=== PATIENT | male | born 1955 | race Caucasian/White ===

== ENCOUNTER → 2016-09-20 | Outpatient (CLI) | payer BC ==
[2014-01-25 15:00] VITALS: BP 114/58
[~2016-09-20] MED LIST: AMPI500C2 PO; CIPR500T94 PO; PRIM50TA PO; PROP60CA PO; TAMS0.4C2 PO
--- NOTE | 2016-09-20 08:57 | RAD ---
Abdominal ultrasound - limited to the kidneys Indication: Right flank pain, recurrent urinary tract infections. Comparison: Ultrasound abdomen 01/22/2014. Procedure: Transabdominal ultrasound images are obtained of the kidneys and bladder. Findings: Right kidney measures 11.8 cm in length. Superior pole of the right kidney demonstrates 3.7 cm cyst. The interpolar region of the right kidney demonstrates an additional cyst with demonstrates a mild amount of internal echogenicity and is favored represent proteinaceous cyst. Second cyst measures 1.9 cm in maximum dimension; on previous study, this had more simple appearance. Right kidney is without evidence of obstruction. Left kidney measures 12.5 cm in length. Left kidney is without evidence of obstruction or stone. Inferior pole of left kidney demonstrates 2 cysts measuring 2.8 and 1.8 cm in maximum dimension. Left kidney is without evidence of obstruction. Parenchymal echogenicity appears appropriate. Urinary bladder demonstrate presence of Martinez catheter. No focal urinary bladder wall thickening is identified. Impression: 1. Bilateral renal cysts. 2. No evidence of renal obstruction..
== END | disposition home or self-care (01) ==
LOC: US 07:35
PROVIDERS: ATTEND Urology
DX: N28.1 Cyst of kidney, acquired (principal); Z87.440 Personal history of urinary (tract) infections
CPT/HCPCS: 76770

== ENCOUNTER 2016-10-30 16:30 | Emergency (ER) | payer BC ==
[2016-10-30 16:35] VITALS: BP 127/92
[2016-10-30] MEDS ORDERED: LIDOCAINE WITH 8.4% SOD BICARB 3 ML DISP.SYRIN. IJ ONE (17:00)
[2016-10-30] MEDS ORDERED: DIPHTH,PERTUSS(ACELL),TET TOX 0.5 ML DISP.SYRIN. VAX IM ONE (17:00)
[2016-10-30] MEDS ORDERED: fentaNYL PF 100 MCG/2 ML VIAL IV PRN (17:00)
[2016-10-30] MEDS ORDERED: MORP15TA PO (17:10)
--- NOTE | 2016-10-30 17:10 | PHYS DOC ---
Past History Past Medical History: Anxiety, Other Past Surgical History: Other Smoking: Non-smoker, Chew Alcohol Use: None Drug Use: None Adult General Chief Complaint Chief Complaint: FINGER INJURY HPI HPI 61-year-old gentleman presenting to the emergency department after sustaining an injury to the patient's right phalanx. He did this when he was working with a table saw. He sustained an avulsion/maceration/laceration injury. This occurred approximately 1 hour prior to arrival. His tetanus is reportedly up-to- date. He has pain that is moderate to severe sharp nonradiating and without alleviating factors. Review of systems is negative for wrist pain or elbow pain more proximally. He denies chest pain or abdominal pain. All other review of systems is negative unless otherwise noted in history of present illness. Pertinent physical exam findings showed a avulsion/macerated tissue at the distal end of his phalanx. He is neurovascularly intact and has 2 second cap refill around the area. Otherwise no other injuries identified more proximally. Nontender metacarpals. Nontender scaphoid. Nontender wrist. ED course: 61-year-old gentleman presenting after sustaining a avulsion injury to his right phalanx. The wound was irrigated. Tetanus is already up-to-date so we will not have to give that. A block of the phalanx was performed in the emergency room for further irrigation and assessment for possible suture. X- rays were obtained which showed distal phalanx fracture. The wound was washed out and Betadine was placed over the wound and surrounding tissue. The wound was very loosely reapproximated and placed in sterile nonadherent dressing for reassessment by primary care physician in 2 days. Strict return precautions were given. Antibiotics given upon discharge. The patient was then discharged home in stable condition to follow up with their primary care physician over the next 2-3 days. They were to return if their symptoms worsened or if they were concerned for any reason. [id number] discharge instructions and return precautions were given. Patient's questions were answered to their satisfaction. Patient is comfortable plan. Review of Systems Review of Systems SEE ABOVE. Current Medications Current Medications Current Medications Medications (Trade) Dose Ordered Sig/María Start Time Stop Time Status Last Admin Dose Admin Diphtheria/ Tetanus/Acell Pertussis (Boostrix) 0.5 ml ONCE ONCE 10/30/16 17:00 10/30/16 17:01 DC Fentanyl Citrate (Fentanyl 2ml Vial) 25 mcg PRN Q15MIN PRN 10/30/16 17:00 10/31/16 16:59 Lidocaine/Sodium Bicarbonate (Buffered Lidocaine 1%) 6 ml 1X ONCE 10/30/16 17:00 10/30/16 17:01 DC Allergies Allergies Allergies Coded Allergies Type Severity Reaction Last Updated Verified alprazolam Allergy Intermediate chest pain 01/21/14 Yes Physical Exam Physical Exam Constitutional: Well developed, well nourished, no acute distress, non-toxic appearance. [] HENT: Normocephalic, atraumatic, bilateral external ears normal, oropharynx moist, no oral exudates, nose normal. [] Eyes: PERRLA, EOMI, conjunctiva normal, no discharge. [] Neck: Normal range of motion, no tenderness, supple, no stridor. [] Cardiovascular:Heart rate regular rhythm, no murmur [] Lungs & Thorax: Bilateral breath sounds clear to auscultation [] Abdomen: Bowel sounds normal, soft, no tenderness, no masses, no pulsatile masses. [] Skin: Warm, dry, no erythema, no rash. [] Back: No tenderness, no CVA tenderness. [] Extremities: see above Neurologic: Alert and oriented X 3, normal motor function, normal sensory function, no focal deficits noted. [] Psychologic: Affect normal, judgement normal, mood normal. [] EKG EKG [] Radiology/Procedures Radiology/Procedures [] Course & Med Decision Making Course & Med Decision Making Pertinent Labs and Imaging studies reviewed. (See chart for details) [] Dragon Disclaimer Dragon Disclaimer This chart was dictated in whole or in part using Voice Recognition software in a busy, high-work load, and often noisy Emergency Department environment. It may contain unintended and wholly unrecognized errors or omissions. Departure Departure: Impression: Primary Impression: Injury of finger Disposition: HOME, SELF-CARE Condition: STABLE Referrals: SANCHEZ ANGELES MD (PCP) Patient Instructions: Finger Avulsion, Finger Fracture, [id number], Fingernail or Toenail Loss Additional Instructions: Thank you for allowing us to participate in your care today. Followup with your primary care physician in 3 days if your symptoms do not improve. If you do not have a primary care provider you can ask for a list of our primary care providers. Return to the emergency department you have any new or concerning findings. This should be evaluated by the primary care physician and any necessary consulting services for continued management within a few days after discharge. Return to emergency room if you have any new or concerning symptoms including but not limited to fever, chills, nausea, vomiting, intractable pain, any new rashes, chest pain, shortness of air, uncontrolled bleeding, difficulty breathing, and/or vision loss. You may have been prescribed medication that can change in your level of thinking and ability to operate machinery. These medications include hydrocodone and Ativan. Also, Benadryl has been known to do this as well. Be sure to check with your pharmacist and ask if the medications you've prescribed can affect your level of consciousness. I recommend not operating heavy machinery or driving while on medication such as these. Scripts Amoxicillin/Potassium Clav (AUGMENTIN 875-125 TABLET) 1 Each Tablet 1 TAB PO BID, #20 TAB Prov: ANISH EVANS MD 10/30/16 Morphine Sulfate (MORPHINE SULFATE) 15 Mg Tablet 1 TAB PO PRN Q8HRS Y for SEVERE PAIN, #8 TAB Be careful as this medication may make you sleepy or drowsy. Do not drive or operate heavy machinery on this medication. Be sure to ask the pharmacist about other side effects that can exist such as constipation. Prov: ANISH EVANS MD 10/30/16 Laceration Repair Lac Repair Indication right finger injury/avulsion injury Procedure: The wound was placed in appropriate position and a 1% buffered lidocaine finger block was placed with good analgesia. The area was washed with a liter of sterile saline along with the wound being cleansed with Betadine. The wound was loosely reapproximated with 3 nonabsorbable sutures and left to heal under more consistent with secondary intention. Total repair wound length 2 and half centimeters. semi complicated wound repair Complications: None. Problem Qualifiers Primary Impression: Injury of finger Encounter type: initial encounter Laterality: left Qualified Codes: S69.92XA - Unspecified injury of left wrist, hand and finger(s), initial encounter ANISH EVANS MD Oct 30, 2016 17:10
[2016-10-30] MEDS ORDERED: AMOX1TAB61 PO (17:50)
--- NOTE | 2016-10-31 07:57 | RAD ---
Indication: Right hand pain Time of exam 1732 hours. 3 views of the right hand were obtained. There is a soft tissue injury involving the tip of the index finger. The tuft is somewhat obscured and involvement and fracture of the most distal tip of the tuft cannot be entirely excluded. There are punctate opacities overlying or within the soft tissues of the index finger, perhaps foreign bodies. The remaining phalanges are intact. Metacarpals are intact. Impression: Soft tissue injury involving the tip of the index finger, as described.
== END 2016-10-30 18:10 | disposition home or self-care (01) ==
LOC: ER 16:30
DX: S62.630A Displaced fracture of distal phalanx of right index finger, initial encounter for closed fracture (principal); F17.220 Nicotine dependence, chewing tobacco, uncomplicated; Z88.8 Allergy status to other drugs, medicaments and biological substances; X58.XXXA Exposure to other specified factors, initial encounter; Y93.89 Activity, other specified; Y99.8 Other external cause status; Y92.89 Other specified places as the place of occurrence of the external cause
CPT/HCPCS: 12001; 73130; 96374; 99284; J3010

== ENCOUNTER → 2017-10-20 | Outpatient (CLI) | payer BC ==
[~2017-10-20] MED LIST changes: +AMOX1TAB61 PO; +MORP15TA PO
--- NOTE | 2017-10-20 15:29 | RAD ---
Renal ultrasound 10/20/2017 INDICATION: Urinary retention COMPARISON STUDY: Renal ultrasound September 20, 2016 Discussion: Ultrasound evaluation of the kidneys was performed. Static images are submitted to PACS. The bladder has a prevoid volume measurement of 1424 cc. Postvoid volume is 946 cc. This is considered a significant urinary retention. Right kidney measures 11.8 x 5.9 x 5.9 cm. 3 simple appearing right renal cysts are noted. The largest measures 3.7 cm in diameter and is in the superior pole. No hydronephrosis, or nephrolithiasis is identified on the right. Blood flow to right kidney is unremarkable in color Doppler imaging. Left kidney measures 12.4 x 5.3 x 5.7 cm. 2 simple appearing cysts are noted in the left kidney. Largest is in the inferior pole measuring up to 3.1 cm in diameter. Very mild hydronephrosis appears to be present on the left. No nephrolithiasis is identified. IMPRESSION: 1. Significant urinary retention with postvoid bladder volume 946 cc 2. Very mild left hydronephrosis. 3. Simple appearing bilateral renal cysts as described. Electronically signed by: Pedro Perez MD (10/20/2017 3:26 PM) [id number]
== END | disposition home or self-care (01) ==
LOC: US 13:33
PROVIDERS: ATTEND Urology
DX: N28.1 Cyst of kidney, acquired (principal); N13.39 Other hydronephrosis; R33.8 Other retention of urine
CPT/HCPCS: 76770

== ENCOUNTER → 2018-03-07 | Outpatient (CLI) | payer BC | END | disposition home or self-care (01) | LOC: LAB 07:03 | PROVIDERS: ATTEND Internal Medicine Cardiovascular Disease | DX: E78.00 Pure hypercholesterolemia, unspecified (principal) | CPT/HCPCS: 80061 ==

== ENCOUNTER → 2018-12-28 | Outpatient (CLI) | payer MEDICARE, BC ==
--- NOTE | 2018-12-28 12:49 | RAD ---
EXAM: Bilateral knees, 2 views. HISTORY: Pain. COMPARISON: None. FINDINGS: 2 views of both knees are obtained. There is mild right lateral compartment joint space narrowing and subchondral sclerosis. There is minimal bilateral patellofemoral compartment spurring. There is left medial compartment chondrocalcinosis. There is trace joint fluid without a significant effusion. IMPRESSION: Mild right lateral compartment predominant osteoarthritis of both knees and left knee chondrocalcinosis. Electronically signed by: Archana Guillen MD (12/28/2018 12:46 PM) [id number]
== END | disposition home or self-care (01) ==
LOC: DXRAD 12:09
PROVIDERS: ATTEND Family Medicine
DX: M17.0 Bilateral primary osteoarthritis of knee (principal); M11.262 Other chondrocalcinosis, left knee
CPT/HCPCS: 73560

== ENCOUNTER → 2019-03-28 | Outpatient (CLI) | payer MEDICARE, BC ==
--- NOTE | 2019-03-28 16:45 | RAD ---
KNEE RIGHT 3V History: Right knee pain Technique: 3 views right knee. Comparison: December 28, 2018 Findings: Mild right knee tricompartment compartment DJD. No significant knee joint effusion. Normal alignment. No fracture. Impression: 1. Mild right knee DJD, unchanged. Electronically signed by: Flo Poon DO (03/28/2019 4:42 PM) [facility]
== END | disposition home or self-care (01) ==
LOC: PMG 09:36
PROVIDERS: ATTEND Family Medicine
DX: M17.11 Unilateral primary osteoarthritis, right knee (principal)
CPT/HCPCS: 73562

== ENCOUNTER → 2019-09-26 | Outpatient (CLI) | payer MEDICARE, BC ==
--- NOTE | 2019-09-26 14:39 | RAD ---
CERVICAL SPINE 5V History: Neck pain Comparison: None. Findings: 7 views of the cervical spine are submitted. Cervical vertebral body stature is overall maintained. There is mild levoscoliosis of the cervical spine. There is multilevel cervical facet degenerative change. There is adequate alignment of the lateral masses of C1 relative to C2. Occipital condylar C1 articulation and superior dens are obscured by overlying bone and teeth on the odontoid view. There is likely degree of right neural foramina compromise of mid to inferior cervical levels although poorly evaluated on this exam. There is mild posterior subluxation C4 relative to C5. There is [id number]-[id number] degenerative disc disease greater posteriorly at C4-5, also degree of degenerative disc disease at C5-6 and C6-7. Impression: 1. There is mild posterior subluxation C4 relative to C5. 2. There is degenerative disc disease greatest C4-5 to C6-7. 3. There is multilevel cervical facet degenerative change. 4. There is likely degree of right neural foramina site of compromise poorly characterized on this exam. Electronically signed by: aLmont Hernandez MD (09/26/2019 2:36 PM) [id number]
== END ==
LOC: RAD 14:03
PROVIDERS: ATTEND Psychiatry & Neurology Neurology
DX: S13.150A Subluxation of C4/C5 cervical vertebrae, initial encounter (principal); M50.321 Other cervical disc degeneration at C4-C5 level; X58.XXXA Exposure to other specified factors, initial encounter; Y93.89 Activity, other specified; Y92.89 Other specified places as the place of occurrence of the external cause; Y99.8 Other external cause status
CPT/HCPCS: 72050

== ENCOUNTER → 2019-10-03 | Outpatient (CLI) | payer MEDICARE, BC ==
--- NOTE | 2019-10-03 08:42 | RAD ---
ANKLE LEFT 2V 10/03/2019 12:00 AM INDICATION: Left ankle pain COMPARISON: None available. TECHNIQUE: 2 views of the left ankle are provided. FINDINGS/ IMPRESSION: 1. There is no definite acute fracture or dislocation. Joint spaces are maintained. Bone mineralization is within normal limits. Regional soft tissues are within normal limits. There is no soft tissue gas or osseous erosion. No radiopaque foreign body. Tibial plafond and talar dome are intact. Ankle mortise is congruent. 2. Ossific fragment is noted along the medial aspect of the talus with subtle cortical irregularity along the talar surface. Findings favor chronic inflammatory changes, however correlate with site of point tenderness. 3. Small plantar calcaneal enthesophyte. Electronically signed by: Anna Mcintyre MD (10/03/2019 8:39 AM) [id number]
== END | disposition home or self-care (01) ==
LOC: RAD 08:24
PROVIDERS: ATTEND Family Medicine
DX: M86.8X7 Other osteomyelitis, ankle and foot (principal)
CPT/HCPCS: 73600

== ENCOUNTER → 2021-09-15 | Outpatient (CLI) | payer MEDICARE, BC ==
[~2021-09-15] MED LIST changes: +MORP-62 PO; -MORP15TA PO
--- NOTE | 2021-09-15 08:48 | RAD ---
EXAM: US RENAL ARTERY DUPLEX 09/15/2021 7:52 AM INDICATION: Hypertension, flank pain. COMPARISON: Renal ultrasound 10/20/2017 TECHNIQUE: Grayscale, color and spectral Doppler ultrasound of the kidneys FINDINGS: The right kidney measures 10.5 cm. In length The left kidney measures 13.2 in length. There is mild c ortical thinning and increased echogenicity of both kidneys. There are 2 anechoic simple cyst in the right kidney measuring up to 3.5 cm. There is an anechoic simple cyst in the left kidney measuring 3. 5 cm. Probable 1 cm calculus in the inferior right renal pole. No hydronephrosis. Right renal artery peak systolic velocity (cm/s) and resistive index: Proximal 93 and 0.74, middle 85 and 0.73, distal 43 and 0.7 Left renal artery peak systolic velocity (cm/s) and resistive index: Proximal 111 and 0.71, middle 116 and 0.69, distal 62 and 0.57 Aorta peak systolic velocity (cm/s): 75 Right renal artery/aorta ratio: 1.24 Left renal artery/aorta ratio: 1.5 Renal veins are patent. IMPRESSION: 1. No evidence of renal artery stenosis. 2. Mildly increased echogenicity and cortical thinning of the kidneys suggesting medical renal diseas e. 3. Bilateral simple renal cyst. 4. Probable right nephrolithiasis. No hydronephrosis. Electronically signed by: Tracy Philip MD (09/15/2021 8:46 AM) [id number]
== END ==
LOC: US 07:44
PROVIDERS: ATTEND Family Medicine
DX: N28.1 Cyst of kidney, acquired (principal); N23 Unspecified renal colic; I10 Essential (primary) hypertension
CPT/HCPCS: 93975